=== PATIENT | male | born 1935 | race Two or more races ===

== ENCOUNTER 2019-07-27 08:14 | Outpatient (CLI) | payer OTHER | END 2019-07-27 09:20 | disposition home or self-care (01) | LOC: NUCLEAR 08:14 | DX: I11.9 Hypertensive heart disease without heart failure (principal); E11.9 Type 2 diabetes mellitus without complications; I25.10 Atherosclerotic heart disease of native coronary artery without angina pectoris | CPT/HCPCS: 78452; 93017; A9500; J0153 ==

== ENCOUNTER → 2022-05-11 | Outpatient (CLI) | payer OTHER | END | disposition home or self-care (01) | LOC: NUCLEAR 10:12 | PROVIDERS: ATTEND Internal Medicine Cardiovascular Disease | DX: I50.9 Heart failure, unspecified (principal) ==